=== PATIENT | female | born 1970 | race Caucasian/White ===

== ENCOUNTER 2025-08-19 02:08 | Day surgery (SDC) | payer OTHER, SELFPAY ==
--- OUTSIDE RECORDS SUMMARY | 2004-07-03 09:30 | XMS_ITS | Continuity of Care Document ---
Author Organization [facility] Address [id number] [place] [address] [place] [address] Phone Care Team Providers Care Web Marketing Manager Name Role Phone Kendell Caba DO Unavailable Unavailable Advance Directives Directive Yes / No Effective Date File Name No Information Encounters Encounter Description Practice Location Reason(s) For Visit Diagnoses Date Provider Providers Copied on Encounter [facility], [address], [place], [place], [address], [place] tel:[phone] [facility] No Information Rosales Almaguer. [address] [facility], [place], [address], [place]. tel: [phone] Family History Family Member Type Diagnosis Age At Onset No Information Payers Payer name Insurance type Covered alliance party ID Authoriza tion(s) Medicaid [facility]LY [facility] [id number] Social History Type Description Quantity Date Captured Comments Sex Female Smoking Status No Information Chief Complaint And Reason For Visit No Information Reason For Referral Reason For Referral No Information History Of Present Illness Encounter Date Complaint History Of Prese nt Illness No Information Functional Status Date Functional Assessmen t No Information Instructions Date Instruction Additional Infor mation No Information Assessments Type Assessment Date No Information Patient Care Teams Name Effective Dates (start - stop) Status Members No Information
--- OUTSIDE RECORDS SUMMARY | 2009-04-20 10:40 | XMS_ITS | Continuity of Care Document ---
Author Organization [facility] Address [address] [place] [address] Phone Care Team Providers Care Safety Pin Assembling Machine Operator Name Role Phone Dilcia Soler MD Unavailable Unavailable Allergies, Adverse Reactions, Alerts Substance Reaction Status Criticality No Known Allergies Active No Inform ation Medications Medication Instructions Dosage Effective Dates (start - stop) Status Comments Remeron 15 mg Tab REMERON 15 MG TABLET<><> 1 TAB by mouth (PO) each morning.<><> As directed by physician.<> Take until all medication is finished.<><>DISPENS E: 30 day supply.<>REFILLS: 3<>Provider: DILCIA SOLER MD<>Provider JF: [id number]<>[facility]: [facility]< - Active Lamictal 25 mg Tab LAMICTAL 25 MG TABLET<><> 1 TAB by mouth (PO)<> As directed by physician.<> Take until all medication is finished.<><>DISPENS E: 30 day supply.<>REFILLS: 5<>Provider: DILCIA SOLER MD<>Provider JF: [id number]<>Health Center: [facility]<><> - Active Ambien 10 mg Tab AMBIEN 10 MG TABLET<><> 1<> As directed by physician.<> Take until all medication is finished.<><>DISPENS E: 30 day supply.<>REFILLS: 3<>Provider: DILCIA SOLER MD<>Provider JF: [id number]<>[facility]: [facility]<><> - Active Cristina-PEG 250 mg Tab take 1 tablet (250MG) by ORAL route every 8 hours - No Longer Active Procedures Procedure Date OFFICE OUTPT EST 10 MIN FERRITIN THYROID STIMULATING HORMONE (TSH) OFFICE/OUTPATIENT VISIT, EST BLOOD COUNT; COMPLETE (CBC), AUTOMATED (HGB, HCT, RBC, WBC AND PLATELET COUNT) IRON THYROID STIMULATING HORMONE (TSH) CYTP C/V AUTO THIN LYR PREPJ SCR SYS PHY S BLOOD COUNT; COMPLETE (CBC), AUTOMATED (HGB, HCT, RBC, WBC AND PLATELET COUNT) COMPRE METAB PANEL LIPID PANEL OFFICE OUTPT EST 25 MIN CALCIFEDIOL (25-OH VITAMIN D-3) 008 Local Anesthesia - Pain Control 007 Extraction erupted tooth or exposed root OFFICE OUTPT EST 10 MIN OFFICE OUTPT EST 25 MIN URINE TEST, BY VISUAL COLOR CO MPARISON METHODS BX/CURETT OF CERVIX W/SCOPE Extraction erupted tooth or exposed root Oral Drugs/Antibiotics - In Office Limit oral eval problem focused 007 Extraction erupted tooth or exposed root Re-evaluation, limited problem focused A OFFICE CONSULT, 15 MIN, 3 KE Y COMPS: PROB FOCUS HX; PROB FOCUS EXAM; STRTFWD OFFICE/OUTPATIENT VISIT, EST CYTP C/V AUTO THIN LYR PREPJ SCR SYS PHY S HEP A/HEP B VACC, ADULT IM OFFICE OUTPT EST 10 MIN Limit oral eval problem focused 006 Extraction erupted tooth or exposed root BX/CURETT OF CERVIX W/SCOPE URINE TEST, BY VISUAL COLOR CO MPARISON METHODS OFFICE OUTPT EST 25 MIN HEP A/HEP B VACC, ADULT IM OFFICE OUTPT NEW 30 MIN THYROID STIMULATING HORMONE (TSH) BLOOD COUNT; COMPLETE (CBC), AUTOMATED (HGB, HCT, RBC, WBC AND PLATELET COUNT) BASIC METABOLIC PANEL CALCIUM TOTAL LIPID PANEL Extraction erupted tooth or exposed root Extraction erupted tooth or exposed root Comprehensve oral evaluation Full Mounth X-Rays CYTP SLIDES C/V MNL SCR PHYS N.GONORRHOEAE, DNA, AMP PROB IAAD EIA HEP B SURF AG PERIODIC COMPREHENSIVE PREVENTIVE MED RE E/M; ESTABLISHED PATIENT; 18-39 ANTIBODY; HIV-1 AND HIV-2, SINGLE ASSAY HEPATITIS C ANTIBODY; SYPHILIS TEST; QUALITATIVE (EG, VDRL, RP R, ART) CHYLMD TRACH, DNA, AMP PROBE Results Test Name Date and Time Measure Units Reference Range Abnormal Flag Status Comments Panel Description: HEPATIC FUNCTION PANEL Final PROTEIN, TOTAL 09 12:35:00 TNP g/dL Final * TEST NOT PERFORMED. * * AN ELECTRONIC TEST REQUEST * * WAS TRANSMITTED TO [facility] * * [facility], BUT NO SPECIMEN * * WAS RECEIVED. * Test performed at [facility] [address] [id number]: ERNESTO CORTÉS MD Advance Directives Directive Yes / No Effective Date File Name Resuscitation Not Answered N/A N/A Life Support Not Answered N/A N/A Intubation Not Answered N/A N/A Antibiotics Not Answered N/A N/A IV Fluid Support Not Answered N/A N/A Tube Feed Not Answered N/A N/A Other Directive N/A N/A WARNING:The information contained in this section is historical and is provided for information only and does not constitute a legal document or any assurance that the information is still accurate. Please verify the information with the rooney of the legal document before using it for clinical purposes. Encounters Encounter Description Practice Location Reason(s) For Visit Diagnoses Date Provider Providers Copied on Encounter OFFICE OUTPT EST 10 MIN [facility], [address], [place], [place], [address] , tel: [phone] [facility] toe nail fugus (chief complaint) heavey periods (chief complaint) Mycosis fungoides, unspecified siteIrregular menstrual cycle [address], [place], [place], [address], [place]. tel:[phone] [facility], [address], [place], [place], [address] , tel: [phone] Historic Immunization Location No Information 9 No Information OFFICE/OUTPATI ENT VISIT, EST [facility], [address], [place], [place], [address] , tel: [phone] [facility] ELEV BL PRES W/O HYPERTNMYCS FNG UNSP XTRNDL ORGHYPERLIPID EMIA NEC/NOSIRREGU LAR MENSTRUATION [address], [place], [place], [address], . tel:[phone] OFFICE OUTPT EST 25 MIN [facility], [address], [place], [place], [address] , tel: [phone] [facility] OBESITY NOSBIPOLAR DISORDER NOSABN PAP SMEAR-OTH SITEEDEMA [address], [place], [place], [address], [place]. tel:[phone] [facility], [address], [place], [place], [address] , tel: [phone] [facility] DENTAL EXAMINATION 6200 7 No Information OFFICE OUTPT EST 10 MIN [facility], [address], [place], [place], [address] , tel: [phone] [facility] PAP SMEAR CERVIX W LGSIL Apr- 2 7 No Information OFFICE OUTPT EST 25 MIN [facility], [address], [place], [place], [address] , [place] tel: [phone] [facility] PAP SMEAR CERVIX W LGSIL Ron-0 200 7 No Information [facility], [address], [place], [place], [address] , [place] tel: [phone] [facility] DENTAL EXAMINATION Dec- 7 No Information OFFICE CONSULT, 15 MIN, 3 CORDERO COMPS: PROB FOCUS HX; PROB FOCUS EXAM; STRTFWD [facility], [address], [place], [place], [address] , [place] tel: [phone] [facility] ECONOMIC PROBLEM Dec-0 7 No Information [facility], [address], [place], [place], [address] , [place] tel: [phone] [facility] DENTAL EXAMINATION Dec-0 7 No Information OFFICE/OUTPATI ENT VISIT, EST [facility], [address], [place], [place], [address] , [place] tel: [phone] [facility] PANIC DIS W/O AGORPHOBIANAU SEA ALONEABN PAP CERVIX HPV NEC Dec-0 2 7 [address], [place], [place], [address], [place]. tel:[phone] OFFICE OUTPT EST 10 MIN [facility], [address], [place], [place], [address] , [place] tel: [phone] [facility] VACCIN FOR DISEASE NECDEPRESSIVE DISORDER NEC [address], [place], [place], [address], [place]. tel:[phone] [facility], [address], [place], [place], [address] , [place] tel: [phone] [facility] DENTAL EXAMINATION 200 6 No Information OFFICE OUTPT EST 25 MIN [facility], [address], [place], [place], [address] , [place] tel: [phone] [facility] ABN PAP CERVIX HPV NEC 6 No Information OFFICE OUTPT NEW 30 MIN [facility], [address], [place], [place], [address] , [place] tel: [phone] [facility] MORBID OBESITYCONSTI PATION NECJOINT PAIN-SHLDERSH ORTNESS OF BREATH [address], [place], [place], [address], [place]. tel:[phone] [facility], [address], [place], [place], [address] , [place] tel: [phone] [facility] DENTAL EXAMINATION 6 No Information [facility], [address], [place], [place], [address] , [place] tel: [phone] [facility] DENTAL EXAMINATION 6 No Information [facility], [address], [place], [place], [address] , [place] tel: [phone] [facility] DENTAL EXAMINATION 6 No Information PERIODIC COMPREHENSIVE PREVENTIVE MED REE/M; ESTABLISHED PATIENT; 18-39 [facility], [address], [place], [place], [address] , [place] tel: [phone] [facility] ROUTINE RN TRANSFER EXAMINATIONIR REGULAR MENSTRUATIONA CNE NEC 6 No Information Family History Family Member Type Diagnosis Age At Onset No Information Immunizations Vaccine Date Status Comments HEPATITIS A AND HEPATITIS B VACCINE (HEPA-HEPB), ADULT DOSAGE, FOR INTRAMUSCULAR USE administered Source: [facility] Immunization Record HEPATITIS A AND HEPATITIS B VACCINE (HEPA-HEPB), ADULT DOSAGE, FOR INTRAMUSCULAR USE administered Source: [facility] Immunization Record Payers Payer name Insurance type Covered republican ID Authoriza timicaela(s) Medicaid - Medical [id number] Social History Type Description Quantity Date Captured Comments Alcohol Use Details Unknown Caffeine Use Details Unknown Tobacco Use Status No Information Smoking Status No Information Sex Female Vital Signs Date / Time: Height Weight BMI Pulse Rate Blood Pressure Temperature Respiratory Rate Body Surface Area Head Circumference Head Circ. Percentile Wt./Juan J. Percentile BMI percentile Pulse Ox Inhaled Ox 4:04 PM 67.00 in 258.60 lbs 40.5 0 kg/m eter (2) 80 /min 103/66 mm[Hg] 98.10 F Chief Complaint And Reason For Visit From encounter dated '04/20/2009 15:40'. toe nail fugus (chief complaint) heavey periods (chief complaint) Reason For Referral Reason For Referral No Information Plan Of Treatment Date Type Action Status Goal AST. Due on due Goal ALT. Due on due Goal PAP. Due on due Goal BMP fasting. Due on 008 due History Of Present Illness Encounter Date Complaint History Of Prese nt Illness No Information Functional Status Date Functional Assessmen t Pain Score 0/10 Instructions Date Instruction Additional Infor mation No Information Assessments Type Assessment Date No Information Patient Care Teams Name Effective Dates (start - stop) Status Members No Information
[2025-06-22 12:46] VITALS: BMI 26.6
--- OUTSIDE RECORDS SUMMARY | 2025-06-30 00:28 | XMS_ITS | Encounter Summary ---
Author Organization [facility] Address [address] [place] [address] Care Team Providers Care Paint Brush Maker Name Role Phone Unknown, Notinfile Primary Care Provider Unavail able Encounter Details Date Type Department Care Team (Late st Contact Info) Description 12/06/2022 Telephone [facility] [address] [facility] [address] [place], [place] [address] Angelita Lemon RN Social History Tobacco Use Types Packs/Day Years Used Date Smoking Tobacco: Never Smokeless Tobacco: Never Alcohol Use Standard Drinks/Week Comments No 0 (1 standard drink = 0.6 oz pur e alcohol) AUDIT-C Answer Date Recorded Q1: How often do you have a drink containing alcohol? Never 12/06/2022 Q2: How many drinks containi ng alcohol do you have on a typical day when you are drinking? Patient does not drink Q3: How often do you have si x or more drinks on one occasion? 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 Never 12/06/2022 10:01 AM Armand Nunez RN Q2: How many drinks containing alcohol do you have on a typical day when you are drinking? Patient does not drink 12/06/2022 10:01 AM Angelita Nunez RN Q3: How often do you have six or more drinks on one occasion? Never 12/06/2022 10:01 AM Armand Nunez RN documented as of this encounter Plan of Treatment Not on file documented as of this encounter Goals Goal Patient Goal Type Associated Problems Recent Progress Patient-Stated? Author CCM Chronic Pain Care Plan Chronic Care Management No Angelita Lemon RN Note: Problem: Chronic Pain Goals: 1. Minimize further functional decline 2. Maximize quality of life 3. Control pain Strategies: - Activity/exercise program recommendation - Conservative stepwise pain medicine strategy with multi-disciplinary approach - Recommend healthy lifestyle strategies and compensatory methods as needed documented as of this encounter Visit Diagnoses Not on filedocumented in this encounter Care Teams Paint Brush Maker Relationship Specialty Start Date End Date Unknown, Notinfile PCP - General 11/05/19 documented as of this encounter
--- OUTSIDE RECORDS SUMMARY | 2025-06-30 00:28 | XMS_ITS | Clinical Summary ---
Author Organization [facility] Address [address] [place] [address] Care Team Providers Care Hot Roller Name Role Phone Unknown, Notinfile Primary Care Provider Unavail able Allergies Active Allergy Reactions Criticality Noted Date Comments Codeine Other (See comments) Low Reaction: ABDOMINAL PAIN, Medications gabapentin (NEURONTIN) 600 mg tablet Take 1 tablet (600 mg total) by mouth 3 (three) times a day. 90 tablet 2 8 Active oxybutynin (DITROPAN) 5 mg tablet oxybutynin chloride 5 mg tablet Active lamoTRIgine (LaMICtal) 200 mg tablet 0 Active ferrous sulfate 325 mg (65 mg of elemental iron) tablet ferrous sulfate 325 mg (65 mg iron) tablet,delayed release Active albuterol HFA (PROVENTIL HFA,VENTOLIN HFA,PROAIR HFA) 90 mcg/actuation inhaler Active QUEtiapine (SEROquel) 100 mg tablet 3 Active sertraline (ZOLOFT) 25 mg tablet 4 tablets (100 mg total) 3 Active busPIRone (BUSPAR) 30 mg tablet 3 Active cyclobenzaprine (FLEXERIL) 10 mg tablet Take 1 tablet (10 mg total) by mouth 3 (three) times a day as needed for muscle spasms Active Active Problems Problem Noted Date Diagnosed Date Complex regional pain syndro me type 2 of left lower extremity 04/22/2018 Chronic right shoulder pain 02/25/2018 Long-term current use of opiate analgesic 2017 Iliotibial band syndrome, left leg 11/05/2017 Bunion of great toe of left foot 11/05/2017 Sinus headache 11/05/2017 Lumbago 08/12/2017 Lumbosacral spondylosis without myelopathy 08/12 Spinal stenosis of lumbar re gion without neurogenic claudication 08/12/2017 Radiculopathy, lumbosacral region 08/12/2017 Cervicalgia 08/12/2017 Cervical radiculopathy 08/12/2017 Fibromyalgia 08/12/2017 Surgical History Surgery Date Site/Laterality Comments ANKLE SURGERY 11/04/2011 HYSTERECTOMY 06/05/2010 ANKLE SURGERY 05/09/2016 Medical History Medical History Date Comments Peripheral neuropathy Gastric reflux Osteoporosis Anemia Depression MRSA (methicillin resistant Staphylococcus aureu s) Bipolar affective disorder (HCC) PTSD (post-traumatic stress disorder) IBS (irritable bowel syndrome) Neck pain Back pain Family History Medical History Relation Name Comments Anxiety disorder Brother Depression Brother Physical abuse Brother Anxiety disorder Father Cancer Father Heart disease Father Anxiety disorder Mother Cancer Mother Chronic Pain Mother Depression Mother Physical abuse Mother Arthritis Other Cancer Other Heart disease Other Mental illness Other Cancer Sister Relation Name Status Comments Brother Father Mother Other Sister Social History Tobacco Use Types Packs/Day Years Used Date Smoking Tobacco: Never Smokeless Tobacco: Never Alcohol Use Standard Drinks/Week Comments No 0 (1 standard drink = 0.6 oz pur e alcohol) AUDIT-C Answer Date Recorded Q1: How often do you have a drink containing alc ohol? 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 Gender Identity Not on file Sexual Orientation Not on file Obstetrics History Last Filed Vital Signs Vital Sign Reading Time Taken Comments Blood Pressure 140/81 12/19/2022 9:58 AM CDT Pulse 80 12/19/2022 9:58 AM CDT Temperature 36.3 C (97.3 F) 12/19/2022 9:14 AM CDT Respiratory Rate 21 12/19/2022 9:38 AM CDT Oxygen Saturation 97% 12/19/2022 9:58 AM CDT Inhaled Oxygen Concentration - - Weight 81.6 kg (180 lb) 12/19/2022 9:14 AM CDT Height 170.2 cm (5' 7) 12/19/2022 9:14 AM CDT Body Mass Index 28.19 12/19/2022 9:14 AM CDT Plan of Treatment Health Maintenance Due Date Last Done Comments Breast Cancer Screening-Mammogram 1972 Colon Cancer Screening-Colonoscopy 1972 Depression Screening 1972 Hepatitis C Screening 1972 DTaP/Tdap/Td Vaccine (1 - Tdap) 1983 Hepatitis B Screening 1990 Regular Well Visit/Exam 18-64 1990 Zoster Vaccine (1 of 2) 2022 Covid-19 Vaccine (3 - season) 2025 09/05/2021, 12/14/2020 Influenza Vaccine (#1) 2025 2, 06/02/2021, 06/13/2020, Additional history exists Pneumococcal vaccine <65 Aged Out No longer eligible based on patient's age to complete this topic Goals Goal Patient Goal Type Associated Problems Recent Progress Patient-Stated? Author CCM Chronic Pain Care Plan Chronic Care Management No Angelita Lemon, RN Note: Problem: Chronic Pain Goals: 1. Minimize further functional decline 2. Maximize quality of life 3. Control pain Strategies: - Activity/exercise program recommendation - Conservative stepwise pain medicine strategy with multi-disciplinary approach - Recommend healthy lifestyle strategies and compensatory methods as needed Medical Devices Implanted Type Area Radio Frequency Engineer Device Identifier Shelf Expiration Date Model / Serial / Lot Screw Left: Ankle [place] [address] [place] [address] [facility] [place] [address] [place] [address] Care Teams Hot Roller Relationship Specialty Start Date End Date Unknown, Notinfile PCP - General 11/05/19
--- OUTSIDE RECORDS SUMMARY | 2025-06-30 00:28 | XMS_ITS | Patient Health Record ---
Author Organization [facility] Address [address] [place] [address] Care Team Providers Care Geosciences Faculty Member Name Role Phone Gregory Early Primary Care Provider JuanOscar Kristin [phone] Allergies No Known Allergies Results Component Value Reference Range Notes Hepatitis C Virus Antibody w /Rflx to Quantitative Real-time PCR ([id number]) Reviewed date:02/17/2025 09:13:12 AM Interpretation: Performing Lab:[facility], [facility], Phone - [phone], Director - PhDRoslindale General Hospitalyuki Notes/Report: HCV Ab Non Reactive Non Reactive Interpretation: Not infected with HCV unless early or acute infection is suspected (which may be delayed in an immunocompromised individual), or other evidence exists to indicate HCV infection. HIV Screen *HIV 1, 2 Ab, p24 Ag ([id number]) Reviewed date:02/17/2025 09:13:12 AM Interpretation: Performing Lab:[facility], [facility], Phone - [phone], Director - PhDRoslindale General Hospitalyukii Notes/Report: HIV Ab/p24 Ag Screen Non Reactive Non Reactive HIV-1/HIV-2 antibodies and HIV-1 p24 antigen were NOT detected. There is no laboratory evidence of HIV infection. HIV Negative Hemoglobin A1c* Reviewed date:02/16/2025 08:43:46 AM Interpretation: Performing Lab:[facility], [address] [facility], Phone - [phone], Director - PhDRoslindale General Hospitalzac Notes/Report: Hemoglobin A1c 5.5 4.8-5.6 % . Prediabetes: 5.7 - 6.4 Diabetes: >6.4 Glycemic control for adults with diabetes: <7.0 CMP 14 Comprehensive Metabol ic Panel* Reviewed date:02/16/2025 08:43:46 AM Interpretation: Performing Lab:[facility], [address] [place] [address], Phone - [phone], Director - Adan Notes/Report: Glucose 97 70-99 mg/dL BUN 18 6-24 mg/dL Creatinine 0.84 0.57-1.00 mg/dL eGFR 84 >59 mL/min/1.73 BUN/Creatinine Ratio 21 9-23 Sodium 138 134-144 mmol/L Potassium 4.7 3.5-5.2 mmol/L Chloride 101 96-106 mmol/L Carbon Dioxide, Total 22 20-29 mmol/L Calcium 9.7 8.7-10.2 mg/dL Protein, Total 7.0 6.0-8.5 g/dL Albumin 4.6 3.8-4.9 g/dL Globulin, Total 2.4 1.5-4.5 g/dL Bilirubin, Total 0.2 0.0-1.2 mg/dL Alkaline Phosphatase 100 44-121 IU/L AST (SGOT) 33 0-40 IU/L ALT (SGPT) 23 0-32 IU/L Reason For Referral Reason SCREENING COLON Diagnosis 1 Colon cancer screeni ng (Z12.11) Referral Organization [facility] Referring Provider First Name Gregory Referring Provider Last Name Nneka Referring Provider Speciality Internal M edicine Referred Provider Specialty Gastroentero logy General Notes Krista Catherine RN 08/2025 09:43:04 AM > called client to ask if she had a specific provider she would like to use.. Obtained voice mail and message left [facility] Donna K 03/08/2025 01:35:40 PM > client requests referral be sent anywhere but [facility] Referral faxed to [facility] [phone] Referral Priority Routine Reason BUNIONS, FLAT FEET, WITH PAIN Diagnosis 1 Bunion of great toe (M21.619) Referral Organization [facility] Referring Provider First Name Gregory Referring Provider Last Name Nneka Referring Provider Speciality Internal M edicine Referred Provider Specialty Podiatry General Notes Krista Catherine RN 09/2024 01:34:19 PM > referral sent to [facility] fax [phone], Krista Catherine RN 04/04/2025 10:09:57 AM > client called and requested a referral to a source that is affiliated with [facility] taking insurance referral faxed and letter sent Clinical Notes Jose Luis Stewart Jr , [address], [facility], PHONE [phone], FAX [phone] Referral Priority Routine Medications Medication SIG (Take, Route, Frequency, Duration) Notes Start Date End Date Status FeroSul 325 (65 Fe) mg TAKE 1 TABLET BY MOUTH DAILY; Duration: 28 Active Zoloft 25 MG 1 tablet Orally at night; Duration: 30 days Active Omeprazole 40 mg TAKE 1 CAPSULE BY MO UTH DAILY; Duration: 28 Active Cyclobenzaprine HCl 10 mg TAKE 1 TABLET BY MOUTH AT BEDTIME; Duration: 30 days Active BuSpar 30 MG 1 tablet Orally Twic e a day; Duration: 90 days Active Fluticasone Propionate 50 MCG/ACT ONE SPRAY TO EACH NOSTRIL DAILY; Duration: 30 days Active oxyBUTYnin Chloride 5 mg TAKE 1 TABLET B Y MOUTH TWICE A DAY Active Gabapentin 600 MG TAKE 1 TABLET BY KRISTIAN TH THREE TIMES DAILY Three times a day; Duration: 90 days Active SEROquel 100 MG 1 tablet Orally at night; Duration: 90 days Active lamoTRIgine 200 MG Take 1 tablet by kristian th twice daily; Duration: 90 days Active Social History Tobacco Use: Social History Observation Description Date Details (start date - stop date) Never Smoker NA - NA Sex Assigned At : Social History Observation Description Sex Assigned At Female Alcohol Screen (Audit-C) Question Answer Notes Did you have a drink containing alcohol in the p ast year? No Dont use, Tobacco use other than smoking: Question Answer Notes Are you an other tobacco user? No Tobacco Control (Standard) Question Answer Notes Tobacco use: Nonsmoker Section Notes: [id number] 04/05/2021 04/05/2021 LORazepam 20 20 0.5 MG Brionna Reynoso L, Msn, [facility] - [id number] [facility], [place], [place] [id number] 04/13/2020 04/13/2020 LORazepam 30 30 0.5 MG NA Brionna Barros L, Msn, [facility] [id number] [place] [id number] 03/16/2020 03/16/2020 LORazepam 30 30 0.5 MG NA Brionna Barros L, Msn, [facility] [id number] [place] [address] 01/17/2020 01/17/2020 LORazepam 30 30 0.5 MG NA Brionna Barros L, Msn, [facility] [id number] [place] [address] 12/16/2019 12/16/2019 LORazepam 30 30 0.5 MG NA Brionna Barros L, Msn, [facility] [id number] [place] [address]854 11/17/2019 09/21/2019 LORazepam 60 30 0.5 MG NA Maya Avery [id number] 04/05/2021 04/05/2021 LORazepam 20 20 0.5 MG NA Brionna Barros L, Msn, [facility] [id number] [place] [id number] 04/13/2020 04/13/2020 LORazepam 30 30 0.5 MG NA Brionna Barros L, Msn, [facility] [id number] [place] [address] 03/16/2020 03/16/2020 LORazepam 30 30 0.5 MG NA Brionna Barros L, Msn, [facility] [id number] [place] [address] 364053 01/17/2020 01/17/2020 LORazepam 30 30 0.5 MG NA Brionna Barros L, Msn, [facility] [id number] [place] [address] 12/16/2019 12/16/2019 LORazepam 30 30 0.5 MG NA Barros Problems Problem Type SNOMED Code ICD Code Onset Dates Problem Status W/U Status Risk Notes Problem Generalized anxiety disorder (65753499) Generalized anxiety disorder (F41.1) Active confirmed Problem Chronic post-traumatic headache (064250219) Chronic post-traumatic headache, not intractable (G44.329) Active confirmed Problem Gastro-esophageal reflux disease without esophagitis (568257542) Gastro-esophage al reflux disease without esophagitis (K21.9) Active confirmed Problem Cervicalgia (00006487) Cervicalgia (M54.2) Active confirmed Problem Overactive bladder (049221983) Overactive bladder (N32.81) Active confirmed Problem Hypertension (81647641) HTN (hypertension) (I10) 11/12/19 19 Active confirmed Problem Post traumatic stress disorder (41476355) Post traumatic stress disorder (F43.10) Active confirmed Problem Bipolar 1 disorder (171589091) Bipolar 1 disorder (F31.9) 11/12/19 19 Active confirmed Problem Allergic rhinitis (31265228) Allergic rhinitis (J30.9) Active confirmed Problem Chronic pain (15209506) Chronic pain (G89.29) Active confirmed Problem Sinusitis (09001363) Sinusitis (J32.9) Active confirmed Problem Major depressive disorder (482604056) Major depressive disorder (F32.9) 11/12/19 19 Active confirmed Problem Constipation (73045202) Constipation (K59.00) Active confirmed Problem Hyperlipidaemia (56959509) Hyperlipemia (E78.5) Active confirmed Problem Seasonal allergy (369101254) Seasonal allergies (J30.2) Active confirmed Problem Posttraumatic stress disorder (78992861) Post traumatic stress disorder (PTSD) (F43.10) Active confirmed Vital Signs Heart Rate 71 /min 02/15/2025 Respiratory Rate 16 /min 02/15/2025 Oximetry 98 % 02/15/2025 Blood pressure diastolic 80 mm Hg 02/15/2025 Height 67 in 02/15/2025 Blood pressure systolic 112 mm Hg 02/15/2025 Weight 175.2 lbs 02/15/2025 BMI 27.44 kg/m2 02/15/2025 Encounters Encounter Location Date Provider Diagnosis [address] [address] 01/17/2025 Gregory Early [address] [place] [address] 01/06/2025 Oscar Juan Bipolar 1 disorder F31.9 ; Generalized anxiety disorder F41.1 and Post traumatic stress disorder (PTSD) F43.[address] [place] [address] 02/15/2025 Gregory Early HTN (hypertension) I10 ; Breast cancer screening by mammogram Z12.31 ; Colon cancer screening Z12.11 ; Bunion of great toe M21.619 ; Screening for diabetes mellitus Z13.1 ; Cervicalgia M54.2 and Exposure to potential infection Z20.9 Assessments Encounter Date Diagnosis (ICD Code) Assessment Notes Treatment Notes Treatment Clinical Notes Section Notes 02/15/2025 HTN (hypertension) (ICD-10 - I10) 02/15/2025 Breast cancer screening by mammogram (ICD-10 - Z12.31) 01/06/2025 Generalized anxiety disorder (ICD-10 - F41.1) 01/06/2025 Bipolar 1 disorder (ICD-10 - F31.9) 01/06/2025 Post traumatic stress disorder (PTSD) (ICD-10 - F43.10) 02/15/2025 Colon cancer screening (ICD-10 - Z12.11) 02/15/2025 Bunion of great toe (ICD-10 - M21.619) 02/15/2025 Screening for diabetes mellitus (ICD-10 - Z13.1) 02/15/2025 Cervicalgia (ICD-10 - M54.2) 02/15/2025 Exposure to potential infection (ICD-10 - Z20.9) 01/06/2025 Other Discussed sleep hygiene and caffeine intake with encouragement to limit electronic devices an hour before bed and to limit caffeine after 3:00pm. Exercise benefits for mood and health discussed. Psychoeducation regarding psychiatric illness provided. Client was educated about risks and benefits of medication, alternatives to medication, off label uses of medication, suicidal ideation with SSRIs, self-administrati on and compliance with medication along with how to safely store medication. Verbal informed consent obtained. Client agrees to return sooner if symptoms worsen or if suicidal or homicidal ideations occur. Client has the phone number to the 24-hour crisis line at [facility]. Questions addressed. Client verbalized understanding of all information and is agreeable to treatment plan. Plan Of Treatment Pending Test Test Name Order Date Xray : SI joint, right 11/25/2018 12 Panel Urine Drug Screen 02/08/2021 12 Panel Urine Drug Screen 03/08/2021 Future Test Test Name Order Date Mammogram Breast - Bilateral Screening with ABUS, diagnostic mammogram/ultrasound, and/or biopsy as clinically indicated 02/15/2025 Next Appt Details Provider Name:Oscar mix, 07/07/2025 10:20:00 AM, [address], [place], [address], Insurance Providers Payer Name Payer Address Payer Phone Subscriber Number Group Number Insured Name Patient Relationship to Insured Coverage Start Date Coverage End Date [facility] [address] [address] [place] [address] [id number] Beatrice Juan Self - patient is the insured 3 [employer] [address] [place] [address] [id number] Beatrice Juan Self - patient is the insured 0 3 MEDICAID [address] [place] [address] [id number] Beatrice Juan Self - patient is the insured 3 4 [employer] [address] [place] [address] [id number] Beatrice Juan Self - patient is the insured 2 3 MEDICAID [address] [facility] [place] [address] [id number] Beatrice Juan Self - patient is the insured 2 2 Medical (General) History Medical History History ICD Code HTN Chronic pain Depression Bi-Polar OAB GERD Allergic Rhinitis Constipation Surgical History Surgery Date(Month/Year) left foot reconstruction 2011 TOTAL HYSTERECTOMY 2009 Hospitalization History Reason Date(Month/Year) [facility] 2012 hysterectomy 2009
--- OUTSIDE RECORDS SUMMARY | 2025-06-30 00:28 | XMS_ITS | Clinical Summary ---
Author Organization [facility] Address [address] [place] [address] Phone Care Team Providers Care Security Trainer Name Role Phone Yesi North APRN, PUG MACHINE OPERATOR Primary Care Pro vider Allergies Active Allergy Reactions Criticality Noted Date Comments Codeine Other (see Comments) Low 11/18/2019 Reaction: ABDOMINAL PAIN, Medications gabapentin (NEURONTIN) 600 MG Tablet Take 600 mg by mouth 3 times daily. 8 Active meloxicam (MOBIC) 7.5 MG Tablet 8 Active omeprazole (PRILOSEC) 40 MG CAPSULE DELAYED RELEASE 8 Active traMADol (ULTRAM) 50 MG Tablet 5 8 Active traZODone (DESYREL) 150 MG Tablet 8 Active FLUoxetine (PROZAC) 20 MG Capsule 8 Active oxybutynin (DITROPAN) 5 MG TabletIndication s:Urinary incontinence, unspecified type Take 1 Tab by mouth 2 times daily. 180 Tab 3 8 Active Ferrous Sulfate 325 (65 Fe) MG Tablet Delayed Response 8 Active fluticasone (FLONASE) 50 MCG/ACT Suspension 8 Active busPIRone HCl (BUSPAR) 30 MG Tablet Take 30 mg by mouth 2 times daily. Active atorvastatin (LIPITOR) 10 MG Tablet Take 10 mg by mouth daily. Active LAMOTRIGINE PO Take 75 mg by mouth 2 times daily. Active QUEtiapine (SEROQUEL) 25 MG Tablet Take 25 mg by mouth daily. Active sertraline (ZOLOFT) 25 MG Tablet Take 25 mg by mouth daily. Active diclofenac sodium (VOLTAREN) 1 % Gel Apply 2 g 4 times daily. 1 Tube 3 9 Active Additional Information Patient not taking.Reported on 11/18/2019 cyclobenzaprine (FLEXERIL) 10 MG TabletIndication s:Sacroiliac joint dysfunction of both sides Take 1 Tab by mouth nightly as needed for Muscle spasms. 30 Tab 0 Active Active Problems Problem Noted Date Diagnosed Date Cervical radiculopathy 03/22/2019 Sacroiliac joint dysfunction of both sides 03/22 Chronic right shoulder pain 03/22/2019 Numbness and tingling in right hand 03/22/2019 Cervicalgia 03/22/2019 Social History Tobacco Use Types Packs/Day Years Used Date Smoking Tobacco: Never Smokeless Tobacco: Never Alcohol Use Standard Drinks/Week Comments No 0 (1 standard drink = 0.6 oz pur e alcohol) Sexually Active Control Partners Comments Never Comments No Sex and Gender Information Value Date Recorded Sex Assigned at Not on file Legal Sex Female 11:06 AM CDT Gender Identity Not on file Sexual Orientation Not on file Last Filed Vital Signs Vital Sign Reading Time Taken Comments Blood Pressure 128/82 11/18/2019 1:34 PM CDT Pulse 73 11/18/2019 1:34 PM CDT Temperature 36 C (96.8 F) 11/18/2019 1:34 PM CDT Respiratory Rate 16 11/18/2019 1:34 PM CDT Oxygen Saturation 96% 11/18/2019 1:34 PM CDT Inhaled Oxygen Concentration - - Weight 84.8 kg (187 lb) 11/18/2019 1:34 PM CDT Height 170.2 cm (5' 7) 11/18/2019 1:34 PM CDT Body Mass Index 29.29 11/18/2019 1:34 PM CDT Plan of Treatment Health Maintenance Due Date Last Done Comments Hepatitis C Virus (HCV) Screening 1972 TdaP Immunization 1972 Hepatitis B Immunization (1 of 3 - 19+ 3-dose series) 1991 Cologuard 2017 Colonoscopy 2017 Colorectal Cancer Screening 2017 Immunochemical Fecal Occult Blood 2017 Pneumococcal Immunization (5 0+ years) (1 of 1 - PCV) 2022 Zoster Immunization (1 of 2) 2022 Influenza Immunization (#1) 2025 SARS-COV-2 Immunization (3 - season) 2025 09/05/2021, 12/14/2020 Respiratory Syncytial Virus (RSV) Immunization (Adult) (1 - 1-dose 75+ series) 2047 Human Papillomavirus (HPV) Immunization Aged Out No longer eligible b ased on patient's age to complete this topic Meningococcal Immunization (ACWY) Aged Out No longer eligible b ased on patient's age to complete this topic Rotavirus Immunization Aged Out No lo nger eligible based on patient's age to complete this topic Insurance MEDICAID [place] Care Teams Security Trainer Relationship Specialty Start Date End Date Yesi North, AURICULOTHERAPIST, PUG MACHINE OPERATOR [address] [place] [phone] PCP - General Family Medicine 10/08/19
[2025-07-28 08:39] VITALS: BMI 26.6
--- OUTSIDE RECORDS SUMMARY | 2025-08-19 02:12 | XMS_ITS | Clinical Summary ---
Author Organization [facility] Address [address] [place] [address] Care Team Providers Care Olericulture Teacher Name Role Phone Unknown, Notinfile Primary Care [...] on file Legal Sex Female 7:18 PM BACTERIOLOGIST DAIRY Gender Identity Not on file Sexual Orientation [...] Screening 1990 Regular Well Visit/Exam 18-64 1990 Pneumococcal vaccine <65 (1 of 2 - PCV) 1991 Zoster Vaccine (1 of 2) 1991 Covid-19 Vaccine (3 - 2024-2 6 season) 2025 09/05/2021, 12/14/2020 Influenza Vaccine (#1) 2025 2, 06/02/2021, 06/13/2020, Additional history exists Goals Goal Patient Goal Type Associated Problems [...] as needed Medical Devices Implanted Type Area Hard Tile Setter Apprentice Device Identifier Shelf Expiration Date Model / Serial / Lot Screw Left: Ankle [place] [address] [place] [address] [place] [address] Care Teams Olericulture Teacher Relationship Specialty Start Date End Date Unknown, Notinfile PCP - General 11/05/19
--- OUTSIDE RECORDS SUMMARY | 2025-08-19 02:12 | XMS_ITS | Clinical Summary ---
Author Organization [facility] Address [address] [place] [address] Phone Care Team Providers Care Olive Grower Name Role Phone Yesi North APRN, EDUCATION SPECIALIST Primary Care Pro vider Allergies Active Allergy [...] 75+ series) 2047 Human Papillomavirus (HPV) Immunization (No Doses Required) Completed Meningococcal Immunization (ACWY) Aged Out No longer eligible b ased on patient's age to complete this topic Rotavirus Immunization Aged Out No lo nger eligible based on patient's age to complete this topic Insurance MEDICAID [place] Care Teams Olive Grower Relationship Specialty Start Date End Date Yesi North, REFORESTATION WORKER, EDUCATION SPECIALIST [address] [place] [address] PCP - General Family Medicine 10/08/19
--- OUTSIDE RECORDS SUMMARY | 2025-08-19 02:12 | XMS_ITS | Encounter Summary ---
Author Organization [facility] Address [address] [place] [address] Care Team Providers Care Experimental Worker Name Role Phone Unknown, Notinfile Primary Care Provider Unavail able Encounter Details Date Type Department Care Team (Late st Contact Info) Description 12/06/2022 Telephone [facility] [address] [facility] [address] [place] [address] [phone] Angelita Lemon RN Social History Tobacco Use [...] on file Legal Sex Female 7:18 PM LEAD COATER Gender Identity Not on file Sexual Orientation Not on file documented as of this encounter Functional Status * Alcohol Withdrawal BP Hierarchy Answer Date of Assessment Author 72 12/06/2022 9:55 AM Gaudencio Burgess RN * AUDIT-C Score Answer Date of Assessment Author 0 12/06/2022 10:01 AM Angelita Nunez RN * Alcohol Use Question Answer Date of Assessment Author Q1: [...] on filedocumented in this encounter Care Teams Experimental Worker Relationship Specialty Start Date End Date Unknown, Notinfile PCP - General 11/05/19 documented as of this encounter
--- OUTSIDE RECORDS SUMMARY | 2025-08-19 02:12 | XMS_ITS | Patient Health Record ---
Author Organization Count includes the [facility] Address [address] [place] [address] Phone [phone] Care Team Providers Care Nuclear Physics Teacher Name Role Phone Gregory Early Primary Care Provider Drake GILOscar Benítez Unavailable [phone] Allergies No Known Allergies Results Component Value Reference Range Notes Hepatitis C Virus Antibody w /Rflx to Quantitative Real-time PCR ([id number]) Order date: 02/15/2025 Reviewed date:02/17/2025 09:13:12 AM Interpretation: Performing Lab:[facility], [address] [facility] [address] [facility], Phone - [phone], Director - Adan Notes/Report: HCV Ab Non Reactive Non Reactive Interpretation: Not infected with HCV unless early or acute infection is suspected (which may be delayed in an immunocompromised individual), or other evidence exists to indicate HCV infection. HIV Screen *HIV 1, 2 Ab, p24 Ag ([id number]) Order date: 02/15/2025 Reviewed date:02/17/2025 09:13:12 AM Interpretation: Performing Lab:[facility], [address] [facility], Phone - [phone], Director - Adan Notes/Report: HIV Ab/p24 Ag Screen Non Reactive Non Reactive HIV-1/HIV-2 antibodies and HIV-1 p24 antigen were NOT detected. There is no laboratory evidence of HIV infection. HIV Negative Hemoglobin A1c* Order date: 02/15/2025 Reviewed date:02/16/2025 08:43:46 AM Interpretation: Performing Lab:[facility] [address], Phone - [phone], Director - Adan Notes/Report: Hemoglobin A1c 5.5 4.8-5.6 % . Prediabetes: 5.7 - 6.4 Diabetes: >6.4 Glycemic control for adults with diabetes: <7.0 CMP 14 Comprehensive Metabol ic Panel* Order date: 02/15/2025 Reviewed date:02/16/2025 08:43:46 AM Interpretation: Performing Lab:[facility] [place], [address] [facility], Phone - [phone], Director - PhDRicchiyukii Notes/Report: Glucose 97 70-99 mg/dL BUN 18 [...] (SGPT) 23 0-32 IU/L Reason For Referral Referral Date 02/15/2025 Referral Status Open Reason SCREENING COLON Diagnosis 1 Colon cancer screeni (Z12.11) Referral Organization [facility] Referring Provider First Name Gregory Referring Provider Last Name Nneka Referring Provider Speciality Internal M edicine Referred Provider Specialty Gastroentero logy General Notes Florin MCGRATH, Krista Mcgill 08/2025 09:43:04 AM > called client to ask if she had a specific provider she would like to use.. Obtained voice mail and message left to return call to [facility], Krista Catherine RN 03/08/2025 01:35:40 PM > client requests referral be sent anywhere but [facility] Referral faxed to [facility] [phone] Referral Priority Routine Referral Date 02/15/2025 Referral Status Open Reason BUNIONS, FLAT FEET, WITH PAIN Diagnosis 1 Bunion of great toe (M21.619) Referral Organization [facility] Referring Provider First Name Gregory Referring Provider Last Name Nneka Referring Provider Speciality Internal M edicine Referred Provider Specialty Podiatry General Notes Krista Catherine RN 09/2024 01:34:19 PM > referral sent to [facility] fax [phone], Krista Catherine RN 04/04/2025 10:09:57 AM > client called and requested a referral to a source that is affiliated with [facility] confirmed taking insurance referral faxed and letter sent Clinical Notes Jose Luis Stewart Jr , [address], [facility], PHONE [phone], FAX [phone] Referral Priority Routine Medications Medication SIG (Take, Route, Frequency, Duration) Notes Start Date End Date Diagnosis (ICD Code) Status Zoloft 25 MG Tablet 1 tablet Orally at night; Duration: 30 days Generalized anxiety disorder (ICD_10 - F41.1) Active FeroSul 325 (65 Fe) mg Tablet TAKE 1 TABLET BY MOUTH DAILY; Duration: 28 Active Omeprazole 40 mg Capsule Delayed Release TAKE 1 CAPSULE BY MOUTH DAILY; Duration: 28 Active oxyBUTYnin Chloride 5 MG Tablet Take 1 tablet by mouth twice daily; Duration: 30 Active Gabapentin 600 MG Tablet TAKE 1 TABLET BY MOUTH THREE TIMES DAILY Three times a day; Duration: 90 days Generalized anxiety disorder (ICD_10 - F41.1) Active Cyclobenzaprine HCl 10 mg Tablet TAKE 1 TABLET BY MOUTH AT BEDTIME; Duration: 30 days Active Sertraline HCl 100 MG Tablet 1/2 tablet by mouth twice daily Orally; Duration: 90 days 07/07/2025 Bipolar 1 disorder (ICD_10 - F31.9) Active Sertraline HCl 25 MG Tablet 1 tablet at bedtime Orally Once a day; Duration: 90 days 07/07/2025 Bipolar 1 disorder (ICD_10 - F31.9) Active Fluticasone Propionate 50 MCG/ACT Suspension ONE SPRAY TO EACH NOSTRIL DAILY; Duration: 30 days Active BuSpar 30 MG Tablet 1 tablet Orally Twice a day; Duration: 90 days Generalized anxiety disorder (ICD_10 - F41.1) Active SEROquel 100 MG Tablet 1 tablet at bedtime Orally Once a day; Duration: 90 days Bipolar 1 disorder (ICD_10 - F31.9) Active lamoTRIgine 200 MG Tablet Take 1 tablet by mouth twice daily; Duration: 90 days Bipolar 1 disorder (ICD_10 - F31.9) Active Social History Tobacco Use: Social History Observation Description Date Details (start date - stop date) Never Smoker NA - NA Sex Observation Social History Observation Description Sex Observation Female Sexual Orientation Social History Observation Description Sexual Orientation Bisexual Gender Identity Social History Observation Description Gender Identity Female Social History Miscellaneous Social Info Question Answer Notes Method of learning: Preferred method of learning: Reading,Discussion,Demonstra tion Primary Social History Social Info Question Answer Notes Living Arrangement Living Arrangement: Dependent Frantz mendez Living with: Brother Employment Status Employment Status: Employed [employer] Illicit Substance Usage Illicit Substance Usage: Yes Substance Used: Cannabis Alcohol Use Alcohol Use Frequency: Never Drugs/Alcohol: Social Info Question Answer Notes Alcohol Screen (Audit-C) Did you have a drink containing alcohol in the past year? No Caffeine Intake: more than 4 cups per day cof fee Tobacco Use: Social Info Question Answer Notes Tobacco Control (Standard) Tobacco use: Nonsmoker Dont use, Tobacco use other than smoking: Are you an other tobacco user? No Additional Details Category Social Info Options Details Past Medication Use Do you use nicotine other than cigarettes? no No Miscellaneous Living with: Brother Section Notes: [id number] 04/05/2021 04/05/2021 LORazepam 20 20 0.5 MG Brionna Reynoso L, Msn, Prep Manager-bc - [id number] [employer], [place] [address] [id number] 04/13/2020 04/13/2020 LORazepam 30 30 0.5 MG Brionna Reynoso L, Msn, Prep Manager[employer]bc - [id number] [employer], [place] [address] [id number] 03/16/2020 03/16/2020 LORazepam 30 30 0.5 MG NA Brionna Barros L, Msn, [facility]-bc - [id number] [place] [facility] [id number] 01/17/2020 01/17/2020 LORazepam 30 30 0.5 MG NA Brionna Barros L, Msn, [employer] Manager[employer] - [id number] [place] [facility] [id number] 12/16/2019 12/16/2019 LORazepam 30 30 0.5 MG NA Fiorella Problems Problem Type SNOMED Code ICD Code Dates Problem Status W/U Status Risk Notes Problem Generalized anxiety disorder (22529359) Generalized anxiety disorder (F41.1) Added On:11/11 Active confirmed Problem Chronic post-traumatic headache (552421879) Chronic post-traumatic headache, not intractable (G44.329) Added On:08/12 Active confirmed Problem Gastro-esophageal reflux disease without esophagitis (483077855) Gastro-esophage al reflux disease without esophagitis (K21.9) Added On:11/11 Active confirmed Problem Cervicalgia (71950388) Cervicalgia (M54.2) Added On:02/15 Active confirmed Problem Overactive bladder (344350352) Overactive bladder (N32.81) Added On:11/11 Active confirmed Problem Hypertension (10352645) HTN (hypertension) (I10) Added On:11/11 Onset Date: 11/12/19 19 Active confirmed Problem Post traumatic stress disorder (22502109) Post traumatic stress disorder (F43.10) Added On:11/11 Active confirmed Problem Bipolar 1 disorder (916747784) Bipolar 1 disorder (F31.9) Added On:11/11 Onset Date: 11/12/19 19 Active confirmed Problem Allergic rhinitis (94537217) Allergic rhinitis (J30.9) Added On:11/11 Active confirmed Problem Chronic pain (53434638) Chronic pain (G89.29) Added On:03/14 Active confirmed Problem Sinusitis (90934651) Sinusitis (J32.9) Added On:11/17 Active confirmed Problem Major depressive disorder (104742885) Major depressive disorder (F32.9) Added On:11/11 Onset Date: 11/12/19 19 Active confirmed Problem Constipation (83187274) Constipation (K59.00) Added On:01/04 Active confirmed Problem Overweight (670202310) Over weight (E66.3) Added On:07/07 Active confirmed Problem Hyperlipidaemia (60058481) Hyperlipemia (E78.5) Added On:11/25 Active confirmed Problem Seasonal allergy (174564620) Seasonal allergies (J30.2) Added On:12/09 Active confirmed Problem Posttraumatic stress disorder (98796452) Post traumatic stress disorder (PTSD) (F43.10) Added On:10/19 Active confirmed Vital Signs Vital Sign Value Notes Appt Date Heart Rate 72 /min 07/07/2025 Temperature 97.4 degrees Fahrenheit 06/10 Respiratory Rate 16 /min 07/07/2025 Blood pressure diastolic 80 mm Hg Oximetry 98 % 07/07/2025 Height 67 inches in 07/07/2025 Blood pressure systolic 120 mm Hg 06/10 Weight 176.6 lbs lbs 07/07/2025 BMI 27.66 kg/m2 07/07/2025 Encounters Date Time Type Facility Location Provider Diagnosis 5 09:20 AM Office Visit, Est Pt., Level 3 (13062) [address] [address] Oscar Juan Bipolar 1 disorder F31.9 ; Generalized anxiety disorder F41.1 and Post traumatic stress disorder (PTSD) F43.10 5 08:20 AM Office Visit, Est Pt., Level 3 (67250) [address] [address] Gregory Early HTN (hypertension) I10 ; Breast cancer screening by mammogram Z12.31 ; Colon cancer screening Z12.11 ; Bunion of great toe M21.619 ; Screening for diabetes mellitus Z13.1 ; Cervicalgia M54.2 and Exposure to potential infection Z20.9 5 10:20 AM Office Visit, Est Pt., Level 3 (50965) [address] [place] [address] Oscar Juan Over weight E66.3 ; Bipolar 1 disorder F31.9 and Generalized anxiety disorder F41.1 5 12:12 PM Telephone Encounter [facility] [address] [place] [address] Gregory Early 5 01:47 PM Telephone Encounter [facility] [address] [place] [address] Oscar Juan Generalized anxiety disorder F41.1 Assessments Encounter Date Diagnosis (ICD Code) Assessment Notes Treatment Notes Section Notes 02/15/2025 HTN (hypertension) (ICD-10 - I10) 01/06/2025 Generalized anxiety disorder (ICD-10 - F41.1) 01/06/2025 Bipolar 1 disorder (ICD-10 - F31.9) 02/15/2025 Breast cancer screening by mammogram (ICD-10 - Z12.31) 07/01/2025 Generalized anxiety disorder (ICD-10 - F41.1) 07/07/2025 Bipolar 1 disorder (ICD-10 - F31.9) Client doing well, no treatment changes needed. 07/07/2025 Over weight (ICD-10 - E66.3) Client doing well, no treatment changes needed. 07/07/2025 Generalized anxiety disorder (ICD-10 - F41.1) Client doing well, no treatment changes needed. 01/06/2025 Post traumatic stress disorder (PTSD) (ICD-10 - F43.10) 02/15/2025 Colon cancer screening (ICD-10 - Z12.11) 02/15/2025 Bunion of great toe (ICD-10 - M21.619) 02/15/2025 Screening for diabetes mellitus (ICD-10 - Z13.1) 02/15/2025 Cervicalgia (ICD-10 - M54.2) 02/15/2025 Exposure to potential infection (ICD-10 - Z20.9) 07/07/2025 Other Discussed sleep hygiene and caffeine intake with encouragement to limit electronic devices an hour before bed and to limit caffeine after 3:00pm. Exercise benefits for mood and health discussed. Psychoeducation regarding psychiatric illness provided. Client was educated about risks and benefits of medication, alternatives to medication, off label uses of medication, suicidal ideation with SSRIs, self-administration and compliance with medication along with how to safely store medication. Verbal informed consent obtained. Client agrees to return sooner if symptoms worsen or if suicidal or homicidal ideations occur. Client has the phone number to the 24-hour crisis line at [facility]. Questions addressed. Client verbalized understanding of all information and is agreeable to treatment plan. Client doing well, no treatment changes needed. 01/06/2025 Other Discussed sleep hygiene and caffeine intake with encouragement to limit electronic devices an hour before bed and to limit caffeine after 3:00pm. Exercise benefits for mood and health discussed. Psychoeducation regarding psychiatric illness provided. Client was educated about risks and benefits of medication, alternatives to medication, off label uses of medication, suicidal ideation with SSRIs, self-administration and compliance with medication along with how to safely store medication. Verbal informed consent obtained. Client agrees to return sooner if symptoms worsen or if suicidal or homicidal ideations occur. Client has the phone number to the 24-hour crisis line at [facility]. Questions addressed. Client verbalized understanding of all information and is agreeable to treatment plan. Plan Of Treatment Pending Test Test Name Order Date Xray : SI joint, right 11/25/2018 12 Panel Urine Drug Screen 02/08/2021 12 Panel Urine Drug Screen 03/08/2021 Future Test Test Name Order Date Mammogram Breast - Bilateral Screening with ABUS, diagnostic mammogram/ultrasound, and/or biopsy as clinically indicated 02/15/2025 Insurance Providers Payer Name Payer Address Payer Phone Subscriber Number Group Number Insured Name Patient Relationship to Insured Coverage Start Date Coverage End Date [facility] [address] [address] [place] [address] [id number] Beatrice Juan Self - patient is the insured 3 [employer] [address] [place] [address] [id number] Beatrice Juan Self - patient is the insured 0 3 MEDICAID [address] [facility] [place] [address] [id number] Beatrice Juan Self - patient is the insured 3 4 [facility] [address] [place] [address] [id number] Beatrice Juan Self - patient is the insured 2 3 MEDICAID [address] [place] [address] [id number] Beatrice Juan Self - patient is the insured 2 2 Medical (General) History Medical History History ICD Code HTN Chronic pain Depression Bi-Polar OAB GERD Allergic Rhinitis Constipation Surgical History Surgery Date(Month/Year) left foot reconstruction 2011 TOTAL HYSTERECTOMY 2009 Hospitalization History Reason Date(Month/Year) [facility]
[2025-08-19 14:08] VITALS: BP 120/57; PULSE 62; RESP 16; TEMP 36.3; O2SAT 100; BMI 26.8
[2025-08-19] MEDS: LACTATED RINGERS 1,000 ML 150 ML IV CONT (14:12)
--- NOTE | 2025-08-19 14:39 | WPDANESEPPF ---
Anes - Initial Pre Proc Eval Procedure: Operation Date: 08/19/25 14:30 Proposed Procedures p Screening Colonoscopy - Joey Colon MD Date/Time: 08/19/25 14:39 Surgeon: Joey Colon MD Pre Op Diagnosis: Encounter for screening for malignant neoplasm of Patient Data Age: 54 Gender: F Height: 1.7 m Weight: 77.6 kg Last Vital Signs Temp 36.3 C L 08/19/25 14:08 Pulse 62 08/19/25 14:08 Resp 16 08/19/25 14:08 BP 120/57 L 08/19/25 14:08 Pulse Ox 100 08/19/25 14:08 O2 Del Method Room Air 08/19/25 14:08 Allergies Allergy/AdvReac Type Severity Reaction Status Date / Time No Known Allergies Allergy Verified 08/19/25 14:05 Home Medications ?Medication ?Instructions ?Recorded ?Confirmed ?Type buspirone 30 mg tablet 30 mg PO BID 06/22/25 08/19/25 History cyclobenzaprine 10 mg tablet 10 mg PO DAILY PRN muscle 06/22/25 07/28/25 History spasticity fluticasone propionate 50 2 spray intranasal DAILY 06/22/25 08/19/25 History mcg/actuation nasal spray,suspension gabapentin 600 mg tablet 600 mg PO TID 06/22/25 08/19/25 History lamotrigine 200 mg tablet 200 mg PO BID 06/22/25 08/19/25 History oxybutynin chloride 5 mg tablet 5 mg PO BID 06/22/25 08/19/25 History quetiapine 100 mg tablet 100 mg PO HS 06/22/25 08/19/25 History sertraline 100 mg tablet 50 mg PO BID 06/22/25 08/19/25 History sertraline 25 mg tablet 25 mg PO .night 06/22/25 08/19/25 History Patient hx anesthesia problems: none Family hx anesthesia problems: none Results Review: All pre-operative results and documents have been reviewed as part of the pre-operative evaluation. [facility] Past Medical History Medical History (Updated 08/19/25 @ 14:39 by Antonio Savage MD) Overweight Family History Family History (Updated 03/03/18 @ 14:13 by DOCTOR UNKNOWN) Sibling Family history of chronic obstructive pulmonary disease Father Malignant neoplasm of prostate Family history of congestive heart failure Social History Social History Smoking status: Never smoker Alcohol intake: never Substance use: current Substance use type: marijuana Last use: 06/22/2025 Living arrangements: with family Spiritual care concerns: No Anes - Eval Final PreProcedure Day of Procedure 08/19/25 14:39 Patient weight: overweight Heart: regular rate and rhythm Lungs: clear to auscultation Airway: Mallampati scale class II Neurological: alert and oriented Last oral intake: >/= 8 hours ASA classification: III Emergent: no Anesthetic plan: proceed Anesthesia type and monitoring: general GIVS and standard monitoring Results Review: All pre-operative results and documents have been reviewed as part of the pre-operative evaluation. Informed Consent: The patient's anesthetic plan and its attendant risks and benefits were discussed with the patient/family/POA. Questions were solicited and answers provided to the satisfaction of the patient/family/POA.
--- NOTE | 2025-08-19 14:49 | PM.HPGS ---
History of Present Illness History of Present Illness Consent: Risks, benefits, and alternatives have been discussed and questions answered. Patient agrees to proceed with procedure. Chief complaint: Encounter for screening for malignant neoplasm of Narrative: Beatrice Juan is a 54 year old female here for first screening colonoscopy Review of Systems Review of Systems: All systems reviewed & are unremarkable except as noted in HPI and below PMFSH Past Medical History Medical History (Updated 08/19/25 @ 14:49 by Joey Colon MD) Colon cancer screening Overweight Family History Family History (Updated 03/03/18 @ 14:13 by DOCTOR UNKNOWN) Sibling Family history of chronic obstructive pulmonary disease Father Malignant neoplasm of prostate Family history of congestive heart failure Social History Social History Smoking status: Never smoker Alcohol intake: never Substance use: current Substance use type: marijuana Last use: 06/22/2025 Living arrangements: with family Spiritual care concerns: No Meds Home Medications and Allergies Home Medications ?Medication ?Instructions ?Recorded ?Confirmed ?Type buspirone 30 mg tablet 30 mg PO BID 06/22/25 08/19/25 History cyclobenzaprine 10 mg tablet 10 mg PO DAILY PRN muscle 06/22/25 07/28/25 History spasticity fluticasone propionate 50 2 spray intranasal DAILY 06/22/25 08/19/25 History mcg/actuation nasal spray,suspension gabapentin 600 mg tablet 600 mg PO TID 06/22/25 08/19/25 History lamotrigine 200 mg tablet 200 mg PO BID 06/22/25 08/19/25 History oxybutynin chloride 5 mg tablet 5 mg PO BID 06/22/25 08/19/25 History quetiapine 100 mg tablet 100 mg PO HS 06/22/25 08/19/25 History sertraline 100 mg tablet 50 mg PO BID 06/22/25 08/19/25 History sertraline 25 mg tablet 25 mg PO .night 06/22/25 08/19/25 History Allergies Allergy/AdvReac Type Severity Reaction Status Date / Time No Known Allergies Allergy Verified 08/19/25 14:05 Vital Signs Vital Signs - 24 hr 08/19/25 14:08 Temperature 97.3 F L Pulse Rate 62 Respiratory Rate 16 Blood Pressure 120/57 L Pulse Oximetry 100 Oxygen Delivery Room Air Exam Const: General: comfortable and no acute distress HENMT: Face/Nose/Sinus: Normal nares present Eyes: General: appearance normal, both eyes and all related structures Neck: Neck: no JVD Resp: Auscultation: clear to auscultation bilaterally Cardio: Rate: regular rate Rhythm: regular rhythm GI: Inspection: non-distended GI Palp: Yes Soft to palpation Skin: General skin exam: normal color Extrem: General: normal to inspection Psych: Mental Status: mental status grossly normal Assessment and Plan Assessment and plan (1) Colon cancer screening: Code(s): Z12.11 - Encounter for screening for malignant neoplasm of colon Status: Acute Assessment and Plan: colonoscopy
--- NOTE | 2025-08-19 15:03 | S_PTH ---
PATIENT: Beatrice Juan LOC: [facility] Cam[facility]#:[id number] AGE/SX: 54/F ROOM: RE08/19/[address]: Joey Colon MD : 1970 BED: DIS: 08/19/2025 SPEC #: [id number] RECD: 08/22/25 07:55 STATUS: PEYTON REJamila #: [id number] DAXA: 08/19/25 15:[address]: Joey Colon DEPT: [facility] Surgical RECD BY: Bety Francis ENTERED: 08/22/25 07:55 SP TYPE: Surgical OTHR DR: Gregory Early MD Tissues: A - Colon Polypectomy Procedures: Hematoxylin and Eosin Stain Gross and Microscopic Level 4
[2025-08-19 15:07] VITALS: BP 108/63; PULSE 60; RESP 19; O2SAT 100
[2025-08-19 15:17] VITALS: BP 120/77; PULSE 61; RESP 16; O2SAT 100
[2025-08-19 15:27] VITALS: BP 111/74; PULSE 60; RESP 23; O2SAT 98
== END 2025-08-19 15:37 | disposition home or self-care (01) ==
PROVIDERS: PCP Internal Medicine; Referring Provider Internal Medicine; Visit Provider Internal Medicine Gastroenterology
PROC: 0DJD8ZZ Inspection of Lower Intestinal Tract, Via Natural or Artificial Opening Endoscopic (ICD-10-PCS; CPT 45378; principal; 2025-08-19 14:30)
DX: Z12.11 Encounter for screening for malignant neoplasm of colon (principal); D12.3 Benign neoplasm of transverse colon; K64.8 Other hemorrhoids; K57.30 Diverticulosis of large intestine without perforation or abscess without bleeding; F12.90 Cannabis use, unspecified, uncomplicated; Z80.42 Family history of malignant neoplasm of prostate; Z82.49 Family history of ischemic heart disease and other diseases of the circulatory system
CPT/HCPCS: 45380; 88305; J2003; J2704; J7120